=== PATIENT | male | born 1935 | race Caucasian/White ===

== ENCOUNTER → 2017-07-01 | Outpatient (CLI) | payer MEDICARE, OTHER ==
[~2017-07-01] MED LIST: AMAN100T PO; ANUC25SU RECTAL; AZAT1INJ PO; CARB200T PO; ENAL5TAB PO; LEVE500 PO; METH1TAB2 PO; NEXI40CA PO; OXYBXL10 PO; POTA-163 PO; SOLU1INJ IV; TIZA4CAP3 PO; TORS20TA PO; ZOCO40TA PO; [UNRECOGNIZED DRUG - CODE] TOPICAL
[2017-07-01 15:58] LABS: AUTOMATED NEUTROPHIL # 4.1 TH/MM3 (1.8-7.7); BASOPHIL % 0.7 % (0.0-2.0); EOSINOPHIL # 0.3 TH/MM3 (0-0.4); EOSINOPHIL % 5.3 % (0.0-4.0); HEMO FLAGS DIFF FINAL; LYMPH % 20.6 % (9.0-44.0); LYMPHOCYTE # 1.4 TH/MM3 (1.0-4.8); MEAN CELL VOLUME 89.9 FL (80.0-100.0); MEAN CORPUSCULAR HEMOGLOBIN 30.6 PG (27.0-34.0); MONO % 10.9 % (0.0-8.0); NEUT % 62.5 % (16.0-70.0); PLATELET COUNT 254 TH/MM3 (150-450); RED BLOOD COUNT 4.34 MIL/MM3 (4.50-5.90); RED CELL DISTRIBUTION WIDTH 13.1 % (11.6-17.2); WHITE BLOOD COUNT 6.6 TH/MM3 (4.0-11.0)
[2017-07-02 11:08] LABS: HEPATITIS B SURFACE ANTIBODY 0 mIU/mL
== END ==
LOC: CLAB 14:56
PROVIDERS: ATTEND Specialist
DX: G93.3 Postviral and related fatigue syndromes (principal); R53.1 Weakness; R53.81 Other malaise; R53.83 Other fatigue; R76.0 Raised antibody titer
CPT/HCPCS: 36415; 85025; 86317; 86704; 86705; 86707; 87340; 87350

== ENCOUNTER 2017-09-20 02:29 | Emergency (ER) | payer MEDICARE, OTHER ==
[~2017-09-20] VITALS: Ht 172.7 cm; Wt 82.0 kg
[2017-09-20 02:32] VITALS: BP 150/65; PULSE 78; RESP 16; O2SAT 98
--- NOTE | 2017-09-20 04:21 | PD ---
HPI Chief Complaint: Complaint Time Seen by Provider: 03:33 Travel History International Travel<30 days: No Contact w/Intl Traveler<30days: No Traveled to known affect area: No History of Present Illness HPI 81yo M with multiple sclerosis with suprapubic cath since 2004 here because his said blood was coming from his abdomen around his suprapubic cath today. Said there was some problems recently with it and that the nurse last changed it 5 days ago. Also was told that he had a UTI and culture was sent on so she started him on ciprofloxacin. Denies any fever, chest pain, sob, n/v. PFSH Past Medical History Arthritis: Yes Asthma: Yes Autoimmune Disease: Yes (MS) Blood Disorders: No Anxiety: No Depression: No Heart Rhythm Problems: No Cancer: No Cardiovascular Problems: Yes High Cholesterol: No Chemotherapy: Yes (FOR MS,"BELIEVES IT IS SOLUMEDROL MONTHLY") Chest Pain: No Congestive Heart Failure: Yes COPD: No Cerebrovascular Accident: No Diabetes: No Diminished Hearing: No Deep Vein Thrombosis: Yes Endocrine: No GERD: Yes Glaucoma: No Genitourinary: No Headaches: No Hepatitis: No Hiatal Hernia: No Hypertension: Yes Immune Disorder: Yes (MULTIPLE SCLEROSIS) Implanted Vascular Access Dvce: No Kidney Stones: No Musculoskeletal: Yes Neurologic: Yes (MS) Psychiatric: No Reproductive: No Respiratory: No Migraines: No Myocardial Infarction: No Radiation Therapy: No Renal Failure: No Seizures: Yes Sickle Cell Disease: No Sleep Apnea: No Thyroid Disease: No Ulcer: No Past Surgical History Abdominal Surgery: No AICD: No Appendectomy: No Arteriovenous Shunt: No Body Medical Devices: SUPRA PUBIC TUBE, INFUSA PORT Cardiac Surgery: No Cholecystectomy: No Ear Surgery: No Endocrine Surgery: No Eye Surgery: No Genitourinary Surgery: Yes (SUPRA-PUBIC CATH PLACEMENT AND VASECTOMY) Gynecologic Surgery: No Insulin Pump: No Joint Replacement: No Neurologic Surgery: No Oral Surgery: Yes (UPPER TEETH REMOVED; PARTIAL TEETH BELOW) Pacemaker: No Thoracic Surgery: No Other Surgery: Yes (LEFT SUBCLAVIAN PORT PLACEMENT) Social History Alcohol Use: No Tobacco Use: No Substance Use: No Allergies-Medications (Allergen,Severity, Reaction): Coded Allergies: adhesive (Verified Allergy, Severe, SKIN IRRITATION, 09/20/17) PAPER TAPE OK *MDRO Multi-Drug Resistant Organism (Verified Allergy, Unknown, 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 Reported Meds & Prescriptions Reported Meds & Active Scripts Active Bactrim DS (Sulfamethoxazole-Trimethoprim) 800-160 Mg Tab 1 Tab PO BID Macrobid (Nitrofurantoin Monohydrate Macrocrystals) 100 Mg Capsule 100 Mg PO BID 7 Days Reported Azathioprine (Azathioprine Sodium) 100 Mg Inj 50 Mg PO TID Anucort-Hc Supp (Hydrocortisone Acetate Supp) 25 Mg Supp 25 Mg RECTAL BID Solu-Medrol Inj (Methylprednisolone Sodium Succinate) 1,000 Mg Inj 1,000 Mg IV MONTHLY Enalapril (Enalapril Maleate) 5 Mg Tab 5 Mg PO DAILY Atopiclair (Dermatological Products, Misc.) 1 Cre Cre 100 Gm TOPICAL BID Potassium Chloride ER (Potassium Chloride) 20 Meq Tab 20 Meq PO DAILY Torsemide 20 Mg Tab 20 Mg PO DAILY Carbamazepine 200 Mg Tab 200 Mg PO TID Amantadine (Amantadine HCl) 100 Mg Tab 100 Mg PO BID Ditropan XL 24 HR (Oxybutynin Chloride) 10 Mg Tab 10 Mg PO DAILY Keppra (Levetiracetam) 500 Mg Tab 500 Mg PO TID Methenamine Hippurate 1 Gm Tab 1 Gm PO TID Tizanidine (Tizanidine HCl) 4 Mg Cap 4 Mg PO TID Nexium (Esomeprazole DR) 40 Mg Capdr 40 Mg PO DAILY Zocor (Simvastatin) 40 Mg Tab 40 Mg PO DAILY Review of Systems Except as stated in HPI: all other systems reviewed are Neg Physical Exam Narrative GENERAL: 81yo M not in distress. SKIN: Focused skin assessment warm/dry. HEAD: Atraumatic. Normocephalic. EYES: Pupils equal and round. No scleral icterus. No injection or drainage. ENT: No nasal bleeding or discharge. Mucous membranes pink and moist. NECK: Trachea midline. No JVD. CARDIOVASCULAR: Regular rate and rhythm. No murmur appreciated. RESPIRATORY: No accessory muscle use. Clear to auscultation. Breath sounds equal bilaterally. GASTROINTESTINAL: Abdomen soft, suprapubic cath in place. There are dried blood around it. Nontender to palpation. Nondistended. No rebound tenderness or guarding. MUSCULOSKELETAL: No obvious deformities. No clubbing. No cyanosis. No edema. NEUROLOGICAL: Awake and alert. No obvious cranial nerve deficits. Motor grossly within normal limits. Normal speech. PSYCHIATRIC: Appropriate mood and affect; insight and judgment normal. Data Data Last Documented VS Vital Signs Date Time Temp Pulse Resp B/P (MAP) Pulse Ox O2 Delivery O2 Flow Rate FiO2 09/20/17 06:40 09/20/17 03:13 16 09/20/17 02:32 78 98 Room Air Orders Orders Complete Blood Count With Diff (09/20/17 03:46) Basic Metabolic Panel (Bmp) (09/20/17 03:46) Ct Abd/Pel W Iv Contrast(Rout) (09/20/17 ) Type And Screen (09/20/17 03:46) Prothrombin Time / Inr (Pt) (09/20/17 03:46) Act Partial Throm Time (Ptt) (09/20/17 03:46) Iohexol 350 Inj (Omnipaque 350 Inj) (09/20/17 05:37) Urinalysis - C+S If Indicated (09/20/17 05:46) Piperacil-Tazo 3.375 Gm Premix (Zosyn 3. (09/20/17 06:15) Ed Discharge Order (09/20/17 06:15) Urine Culture (09/20/17 06:10) Labs Laboratory Tests Test 09/20/17 04:17 09/20/17 06:10 White Blood Count 10.5 TH/MM3 Red Blood Count 4.23 MIL/MM3 Hemoglobin 12.9 GM/DL Hematocrit 37.8 % Mean Corpuscular Volume 89.5 FL Mean Corpuscular Hemoglobin 30.4 PG Mean Corpuscular Hemoglobin Concent 34.0 % Red Cell Distribution Width 13.8 % Platelet Count 297 TH/MM3 Mean Platelet Volume 6.9 FL Neutrophils (%) (Auto) 73.9 % Lymphocytes (%) (Auto) 13.4 % Monocytes (%) (Auto) 10.8 % Eosinophils (%) (Auto) 1.4 % Basophils (%) (Auto) 0.5 % Neutrophils # (Auto) 7.8 TH/MM3 Lymphocytes # (Auto) 1.4 TH/MM3 Monocytes # (Auto) 1.1 TH/MM3 Eosinophils # (Auto) 0.1 TH/MM3 Basophils # (Auto) 0.1 TH/MM3 CBC Comment DIFF FINAL Differential Comment Prothrombin Time 10.4 SEC Prothromb Time International Ratio 0.9 RATIO Activated Partial Thromboplast Time 21.8 SEC Blood Urea Nitrogen 17 MG/DL Creatinine 1.10 MG/DL Random Glucose 89 MG/DL Calcium Level 8.1 MG/DL Sodium Level 138 MEQ/L Potassium Level 3.9 MEQ/L Chloride Level 102 MEQ/L Carbon Dioxide Level 26.4 MEQ/L Anion Gap 10 MEQ/L Estimat Glomerular Filtration Rate 64 ML/MIN Urine Color LIGHT-YELLOW Urine Turbidity HAZY Urine pH 6.5 Urine Specific [place] 1.025 Urine Protein 30 mg/dL Urine Glucose (UA) NEG mg/dL Urine Ketones NEG mg/dL Urine Occult Blood MOD Urine Nitrite POS Urine Bilirubin NEG Urine Urobilinogen LESS THAN 2.0 MG/DL Urine Leukocyte Esterase LARGE Urine RBC 124 /hpf Urine WBC 59 /hpf Urine Squamous Epithelial Cells <1 /hpf Urine Bacteria OCC /hpf Microscopic Urinalysis Comment CATH-CULTURE IND MDM Medical Decision Making Medical Screen Exam Complete: Yes Emergency Medical Condition: Yes Differential Diagnosis UTI vs. cystitis vs. abdominal hematoma Narrative Course 81yo M with multiple sclerosis and chronic suprapubic catheter here because there was blood coming out around the catheter today. Vital signs stable. Labs reviewed, no leukocytosis. H/H 12.9/37.8. BMP unremarkable. Creatinine normal. CT a/p showed suprapubic catheter in place. Nonspecific diffuse urinary bladder wall thickening. Mild hyperdensity along the track of the catheter in the anterior abdominal wall may represent small amount of hemorrhage. Pt has no active bleeding on exam. No abdominal pain and well appearing so will have pt follow up with urologist and primary care physician. I reviewed the urine culture results from 09/12/17 and it grew serratia marcescens that is sensitive to bactrim, enterococcus faecalis that is sensitive to macrobid and pseudomonas aeruginosa that is sensitive to cipro. Since pt is already taking cipro, I can add bactrim and macrobid. Will send another UA today. Pt's is very concern about the UTI and wants one IV dose here so IV zosyn given. The suprapubic catheter is draining well and draining yellow urine. Will leave that in place. Copy of CT report given to patient to follow up with urologist. Diagnosis Primary Impression: Suprapubic catheter dysfunction Qualified Codes: T83.010A - Breakdown (mechanical) of cystostomy catheter, initial encounter Patient Instructions: General Instructions Departure Forms: Tests/Procedures Additional Instructions: Please follow up with your urologist and primary care physician in 1-2 days. Will add nitrofurantoin and bactrim to cipro for urine infection. Med/Other Pt SpecificInfo: Prescription(s) given Scripts Sulfamethoxazole-Trimethoprim (Bactrim DS) 800-160 Mg Tab 1 TAB PO BID for Infection, #14 TAB 0 Refills Prov: Katie Ayala DO 09/20/17 Nitrofurantoin Monohydrate Macrocrystals (Macrobid) 100 Mg Capsule 100 MG PO BID for Infection for 7 Days, #14 CAP 0 Refills Prov: Katie Ayala DO 09/20/17 Katie Ayala DO Sep 20, 2017 04:21
[2017-09-20 04:31] LABS: AUTOMATED NEUTROPHIL # 7.8 TH/MM3 (1.8-7.7); BASOPHIL # 0.1 TH/MM3 (0-0.2); BASOPHIL % 0.5 % (0.0-2.0); EOSINOPHIL # 0.1 TH/MM3 (0-0.4); EOSINOPHIL % 1.4 % (0.0-4.0); HEMATOCRIT 37.8 % (39.0-51.0); HEMO FLAGS DIFF FINAL; LYMPH % 13.4 % (9.0-44.0); LYMPHOCYTE # 1.4 TH/MM3 (1.0-4.8); MEAN CELL VOLUME 89.5 FL (80.0-100.0); MEAN CORPUSCULAR HEMOGLOBIN 30.4 PG (27.0-34.0); MONO % 10.8 % (0.0-8.0); NEUT % 73.9 % (16.0-70.0); PLATELET COUNT 297 TH/MM3 (150-450); RED BLOOD COUNT 4.23 MIL/MM3 (4.50-5.90); RED CELL DISTRIBUTION WIDTH 13.8 % (11.6-17.2); WHITE BLOOD COUNT 10.5 TH/MM3 (4.0-11.0)
[2017-09-20 04:41] LABS: APTT (PATIENT) 21.8 SEC (24.3-30.1); INTERNATIONAL NORMALIZED RATIO 0.9 RATIO; PROTHROMBIN TIME - PATIENT 10.4 SEC (9.8-11.6)
[2017-09-20 04:57] LABS: BICARBONATE 26.4 MEQ/L (21.0-32.0); POTASSIUM 3.9 MEQ/L (3.5-5.1)
[2017-09-20] MEDS ORDERED: IOHEXOL 350 MG/ML 10 ML VIAL (for RAD DIAG) IVCONTRAST ONE (05:37)
--- NOTE | 2017-09-20 05:47 | RADRPT ---
EXAM DATE/TIME: 09/20/2017 05:18 [facility] COMPARISON: No previous studies available for comparison. INDICATIONS : Bleeding from supra-pubic catheter site. IV CONTRAST: 95 cc Omnipaque 350 (iohexol) IV ORAL CONTRAST: No oral contrast ingested. RADIATION DOSE: 12.87 CTDIvol (mGy) MEDICAL HISTORY : Multple sclerosis. Gastroesophageal reflux disease. Deep venous thrombosis.Seizure. Congestive heart failure. Hypertension. SURGICAL HISTORY : Supra-pubic catheter. ENCOUNTER: Initial ACUITY: 1 day PAIN SCALE: 1/10 LOCATION: pelvis TECHNIQUE: Volumetric scanning of the abdomen and pelvis was performed. Using automated exposure control and ad justment of the mA and/or kV according to patient size, radiation dose was kept as low as reasonably achievable to obtain optimal diagnostic quality images. DICOM format image data is available electro nically for review and comparison. FINDINGS: LOWER LUNGS: The visualized lower lungs are clear. LIVER: 8mm cyst in the anterior left lobe of the liver. Liver calcification also noted at the anterior capsu le of the left lobe. Liver otherwise within normal limits. Likely status post cholecystectomy. SPLEEN: Multiple calcified splenic granulomas. PANCREAS: Calcifications in the pancreatic head indicating chronic pancreatitis. KIDNEYS: Normal in size and shape. There is no mass, stone or hydronephrosis. ADRENAL GLANDS: Within normal limits. VASCULAR: Diffuse atherosclerotic disease. Abdominal aortic diameter are within normal limits. BOWEL/MESENTERY: No evidence of bowel dilatation. No free air or free fluid. Appendix within normal limits. ABDOMINAL WALL: Within normal limits. RETROPERITONEUM: There is no lymphadenopathy. BLADDER: Suprapubic catheter in place. Diffuse nonspecific urinary bladder wall thickening. Small focus of gas in the urinary bladder. Mild hyperdensity is seen adjacent to the catheter in the anterior abdominal wall may represent small amount of hemorrhage. REPRODUCTIVE: Within normal limits. INGUINAL: There is no lymphadenopathy or hernia. MUSCULOSKELETAL: Within normal limits for patient age. CONCLUSION: 1. Suprapubic catheter in place. Nonspecific diffuse urinary bladder wall thickening. Mild hyperdensi ty along the track of the catheter in the anterior abdominal wall may represent small amount of hemor rhage. 2. Chronic pancreatitis. Jim Mcclain MD on September 20, 2017 at 5:39 Board Certified Radiologist. This report was verified electronically.
[2017-09-20] MEDS ORDERED: MACR100C2 PO (06:15)
[2017-09-20] MEDS ORDERED: BACT800T5 PO (06:15)
[2017-09-20] MEDS ORDERED: PIPERACIL-TAZO 3.375 GM PREMIX 50 ML IV ONE (06:15)
[2017-09-20 06:35] LABS: BACTERIA, URINE OCC /hpf; BLOOD, URINE MOD (NEG); GLUCOSE,URINE NEG (NEG); KETONE, URINE NEG (NEG); NITRITE,URINE POS (NEG); PH, URINE 6.5 (5.0-8.5); SQUAMOUS EPITHELIAL CELL URINE <1 /hpf (0-5); URINE COLOR LIGHT-YELLOW (YELLW/STRAW)
[2017-09-20 06:36] LABS: COMMENT (UR) CATH-CULTURE IND; CULTURE IF INDICATED CATH CULTURE IND
== END 2017-09-20 06:42 | disposition home or self-care (01) ==
LOC: NEPE 02:29
DX: T83.010A Breakdown (mechanical) of cystostomy catheter, initial encounter (principal); B96.89 Other specified bacterial agents as the cause of diseases classified elsewhere; K86.1 Other chronic pancreatitis; G35 Multiple sclerosis; M19.90 Unspecified osteoarthritis, unspecified site; J45.909 Unspecified asthma, uncomplicated; I11.0 Hypertensive heart disease with heart failure; I50.9 Heart failure, unspecified; K21.9 Gastro-esophageal reflux disease without esophagitis
CPT/HCPCS: 74177; 80048; 81001; 85025; 85610; 85730; 86850; 86900; 86901; 87077; 87086; 87186; 96365; 99285; J2543; Q9967

== ENCOUNTER → 2017-10-15 | Outpatient (CLI) | payer MEDICARE, OTHER ==
[~2017-10-15] MED LIST changes: +BACT800T5 PO; +MACR100C2 PO
[2017-10-15 12:26] LABS: AUTOMATED NEUTROPHIL # 4.6 TH/MM3 (1.8-7.7); BASOPHIL # 0.1 TH/MM3 (0-0.2); BASOPHIL % 0.8 % (0.0-2.0); EOSINOPHIL # 0.3 TH/MM3 (0-0.4); EOSINOPHIL % 4.1 % (0.0-4.0); HEMATOCRIT 41.7 % (39.0-51.0); HEMO FLAGS DIFF FINAL; LYMPH % 22.1 % (9.0-44.0); LYMPHOCYTE # 1.7 TH/MM3 (1.0-4.8); MEAN CELL VOLUME 89.4 FL (80.0-100.0); MEAN CORPUSCULAR HEMOGLOBIN 29.6 PG (27.0-34.0); MEAN CORPUSCULAR HGB CONC 33.1 % (32.0-36.0); MONO % 11.2 % (0.0-8.0); NEUT % 61.8 % (16.0-70.0); PLATELET COUNT 273 TH/MM3 (150-450); RED BLOOD COUNT 4.66 MIL/MM3 (4.50-5.90); RED CELL DISTRIBUTION WIDTH 14.2 % (11.6-17.2); WHITE BLOOD COUNT 7.5 TH/MM3 (4.0-11.0)
[2017-10-15 12:39] LABS: ALT (GPT) 29 U/L (12-78); ANION GAP 7 MEQ/L (5-15); AST (GOT) 9 U/L (15-37); BICARBONATE 29.2 MEQ/L (21.0-32.0); BLOOD UREA NITROGEN 17 MG/DL (7-18); CHLORIDE 99 MEQ/L (98-107); GLOMERULAR FILTRATION RATE 69 ML/MIN (>89); GLUCOSE,FASTING 79 MG/DL (74-99); SODIUM (NA) 135 MEQ/L (136-145)
[2017-10-15 12:41] LABS: ALKALINE PHOSPHATASE 75 U/L (45-117); TOTAL BILIRUBIN ADULT 0.5 MG/DL (0.2-1.0)
[2017-10-15 12:42] LABS: HDL CHOLESTEROL 58.1 MG/DL (40.0-60.0)
== END ==
LOC: CLAB 11:40
PROVIDERS: ATTEND Family Medicine
DX: I10 Essential (primary) hypertension (principal); E78.5 Hyperlipidemia, unspecified
CPT/HCPCS: 36415; 80053; 80061; 85025